=== PATIENT | female | born 1970 | race Caucasian/White ===

== ENCOUNTER 2020-12-13 13:55 | Emergency (ER) | payer OTHER, SELFPAY ==
--- NOTE | ~2020-12-13 | XR_ITS ---
EXAMINATION: XR chest 2V DATE: 12/13/2020 14:26 INDICATION: Fatigue and cough TECHNIQUE: PA and lateral views of the chest are obtained. COMPARISON: None available FINDINGS: The lungs are free of acute opacities. There is no pleural effusion or pneumothorax. The ca rdiomediastinal silhouette is normal. There is mild thoracic spondylosis. A right internal jugular Po rt-A-Cath ends with its tip in the midsuperior vena cava. There is sclerosis in the medial head of th e right clavicle. There appear to be changes of left mastectomy. IMPRESSION: 1. No acute cardiopulmonary abnormality. 2. Sclerosis in the medial head of the left clavicle which could reflect osseous metastatic disease. Reviewed, dictated and finalized at location B. IMPRESSION: 1. No acute cardiopulmonary abnormality. 2. Sclerosis in the medial head of the left clavicle which could reflect osseou s metastatic disease.
[2020-12-13 14:00] VITALS: BP 139/89; PULSE 103; RESP 16; TEMP 37.5; O2SAT 99
--- NOTE | 2020-12-13 14:20 | ED.GENADULT ---
HPI - General Adult General Chief complaint: Upper Respiratory Infection Stated complaint: swollen glands/ear pain/fever/body aches/sob Source: patient Mode of arrival: ambulatory Limitations: no limitations History of Present Illness HPI narrative: 50 y/o female. PMHx ALAN, MDD, Breast CA, HTN, DM II, PN, Obesity. Presents to [facility] today with acute complaints of body aches, nasal congestion, throat 'irritation', cough, and intermittent dyspnea for the past 72 hours. She reports sub-therapeutic relief with OTC remedies. Reports chills, however no objective fevers. Intermittent dyspnea, w/o chest pain, palpitations, edema. No wheezing. Non-smoker. She is Covid 19 vaccinated. She is w/o additional acute c/o illness upon exam. Related Data Home Medications Medication Instructions Recorded Confirmed Singulair 06/01/19 alprazolam 0.5 mg PO BID PRN 06/01/19 12/13/20 amlodipine 10 mg PO DAILY 06/01/19 12/13/20 dextroamphetamine-amphetamine 5 mg PO DAILY 06/01/19 12/13/20 [Adderall] duloxetine [Cymbalta] 20 mg PO BID 06/01/19 12/13/20 fulvestrant 06/01/19 gabapentin 300 mg PO DAILY 06/01/19 hydrocodone-acetaminophen 1 tablet PO Q4H PRN 06/01/19 06/01/19 lisinopril 10 mg PO DAILY 06/01/19 12/13/20 metformin 500 mg PO DAILY 06/01/19 12/13/20 Allergies Allergy/AdvReac Type Severity Reaction Status Date / Time pseudoephedrine Allergy Hives Verified 12/13/20 14:17 [From Actifed] triprolidine [From Actifed] Allergy Hives Verified 12/13/20 14:17 Review of Systems Review of Systems: CONSTITUTIONAL: Denies fever, sweats. Positive chills. EYES: Denies visual changes, redness, discharge. ENT: Positive rhinorrhea, congestion, sore throat. No otalgia. CARDIOVASCULAR: Denies chest pain, palpitations, edema. RESPIRATORY: dyspnea, cough. No wheezing. GASTROINTESTINAL: Denies abdominal pain, nausea, vomiting, diarrhea. GENITOURINARY: Denies dysuria, hematuria, abnormal discharge SKIN: Denies rash or itching. MUSCULOSKELETAL: Denies acute back pain, joint pain, or myalgia. NEUROLOGIC: Denies numbness, or focal weakness. PSYCHIATRIC: Denies anxiety or depression. All systems reviewed & are unremarkable except as noted in HPI and below Exam Narrative: GENERAL: This is a well-nourished, well-developed adult, in no apparent distress. HEAD: normocephalic, atraumatic. EYES: PERRL. Sclera clear/white. EARS: External ears normal, auditory canals clear and without drainage, TMs normal. NOSE: External nose normal. Positive Rhinorrhea, no obstruction, nares patent. THROAT: Mucous membranes moist, posterior pharynx erythematous. No exudates. NECK: Neck supple, non-tender without lymphadenopathy, masses or thyromegaly. CARDIOVASCULAR: Regular rate and rhythm without murmurs, gallops, or rubs. RESPIRATORY: Upper airway Rhonchi, cleared w/cough. Breath sounds equal bilaterally. No wheezes, rales, or stridor. GASTROINTESTINAL: Abdomen soft, non-tender, nondistended. Bowel sounds are active. No guarding. SKIN: warm, intact with no suspicious lesions or rash, good texture and turgor. NEURO: No focal neurologic deficits. EXTREMITIES: Negative. Course Vital Signs Vital signs: Vital Signs Temperature 37.5 C 12/13/20 14:00 Pulse Rate 103 H 12/13/20 14:00 Respiratory Rate 16 12/13/20 14:00 Blood Pressure 139/89 12/13/20 14:00 Pulse Oximetry 99 12/13/20 14:00 Temperature 37.5 C 12/13/20 14:00 Pulse Rate 103 H 12/13/20 14:00 Respiratory Rate 16 12/13/20 14:00 Blood Pressure 139/89 12/13/20 14:00 Pulse Oximetry 99 12/13/20 14:00 Medical Decision Making [facility] Narrative Medical decision making narrative: -Afebrile, normotensive, appears non-toxic on exam. -No respiratory distress. -Rapid Covid negative. -Plain film chest imaging reveals no acute cardiopulmonary processes. Incidentally noted is sclerosis in the medial head of the left clavicle which could reflect osseo
== END 2020-12-13 14:45 | disposition home or self-care (01) ==
PROVIDERS: Emergency Provider Nurse Practitioner Adult Health; PCP Family Medicine
DX: J06.9 Acute upper respiratory infection, unspecified (principal); R91.8 Other nonspecific abnormal finding of lung field; Z20.822 Contact with and (suspected) exposure to COVID-19; I10 Essential (primary) hypertension; E11.9 Type 2 diabetes mellitus without complications; F41.1 Generalized anxiety disorder; F32.9 Major depressive disorder, single episode, unspecified; Z85.3 Personal history of malignant neoplasm of breast
CPT/HCPCS: 71046; 87426; 99213; C9803; G0463